=== PATIENT | male | born 1965 | race Caucasian/White ===

== ENCOUNTER 2018-04-07 16:38 | Emergency (ER) | payer SELFPAY ==
[2018-04-07 17:11] LABS: #Eosinphils 0.2 thou/uL (0.0-0.7); #Monocytes 0.6 thou/uL (0.11-0.59); #Neutrophils 4.6 thou/uL (1.40-6.50); %Basophils 0.8 % (0.0-1.0); %Eosinophils 3.1 % (0.0-10.0); %Lymphocytes 15.2 % (21.0-51.0); %Monocytes 8.7 % (0.0-10.0); %Neutrophils 72.2 % (42.0-75.0); Mean Corpuscular Hemoglobin 33.5 pg (27.0-31.0); Mean Corpuscular Volume 98.6 fL (78.0-98.0); Mean Platelet Volume 8.3 fL (7.4-10.4); Platelet Count 152 thou/uL (130-400); RBC Distribution Width 11.4 % (11.5-14.5); Red Blood Cell (RBC) Count 5.07 mill/uL (4.70-6.10); White Blood Cell (WBC) Count 6.3 thou/uL (4.8-10.8)
[2018-04-07 17:32] LABS: ALT (SGPT) 14 U/L (8-55); AST (SGOT) 21 U/L (5-34); Albumin 4.8 g/dL (3.5-5.0); Alkaline Phosphatase 65 U/L (40-150); Anion Gap 12 mmol/L (10-20); BUN (Urea Nitrogen) 22 mg/dL (8.4-25.7); Bilirubin, Total 0.6 mg/dL (0.2-1.2); Calc. Creatinine Clearance 0 mL/min (70-130); Calcium 10.2 mg/dL (7.8-10.44); Carbon Dioxide 31 mmol/L (22-29); Chloride 101 mmol/L (98-107); Estimated GFR-MDRD 54; Glucose 89 mg/dL (70-105); Potassium 3.7 mmol/L (3.5-5.1); Protein, Total 7.8 g/dL (6.0-8.3); Sodium 140 mmol/L (136-145)
[2018-04-07 17:59] LABS: Bilirubin Negative (Negative); Blood, Urine Moderate (Negative); Clarity CLEAR (Clear); Glucose, Urine (Dipstick) Negative (Negative); Leukocyte Small (Negative); Nitrite Negative (Negative); Protein, Urine (Dipstick) Negative (Neg-Trace); Specific Gravity, Urine 1.021 (1.002-1.036); pH, Urine 5.5 (5.0-9.0)
[2018-04-07 18:02] LABS: Bacteria/HPF None Seen HPF (None Seen); Pathc Cast-AUWi Flag 0.87 (0-2.49); Squamous Epithelial 0-3 HPF (0-3)
[2018-04-07 18:17] LABS: Hyaline Casts/LPF 0-3 HYALINE CAST LPF (0-3 Hyaline)
--- NOTE | 2018-04-07 19:58 | ULT ---
RENAL SONOGRAM: 04/07/18 HISTORY: Flank pain. Stones. COMPARISON: CT from 12/02/17. FINDINGS: Moderate distention of the right renal collecting system and right renal pelvis. Ureters seem to be d ilated to the level of the ureterovesicular junction. Shadowing stones are apparent within right martha l calyces. Echogenic stone is apparent within the urinary bladder. Left kidney is 9.6 cm without hydronephrosis or mass. IMPRESSION: Right hydroureteronephrosis with evidence of an obstruction at or near the right ureterovesicular joey ction. Bilateral renal calculi and urinary bladder calculus. POS: [facility]
== END 2018-04-07 22:19 | disposition home or self-care (01) ==
LOC: ERS 16:38
DX: N23 Unspecified renal colic (principal); F17.210 Nicotine dependence, cigarettes, uncomplicated; Z87.442 Personal history of urinary calculi; Z86.73 Personal history of transient ischemic attack (TIA), and cerebral infarction without residual deficits
CPT/HCPCS: 76770; 80053; 81003; 81015; 85025; 96360